=== PATIENT | male | born 1960 | race Caucasian/White ===

== ENCOUNTER → 2024-08-13 | Outpatient (CLI) | payer BC, OTHER ==
[2024-08-13 16:33] LABS: Basophils % (A) 0.8 %; Eosinophils # (A) 0.56 X 10*3/uL (0.04-0.35); Eosinophils % (A) 4.5 %; HCT 42.4 % (39.6-50.0); HGB 13.5 g/dL (13.0-17.0); Lymphocytes # (A) 2.57 X 10*3/uL (0.90-5.00); Lymphocytes % (A) 20.5 %; MCH 27.9 pg (27.0-32.0); MCHC 31.8 g/dL (32.0-37.0); MCV 87.6 FL (80.0-97.0); Mean Platelet Volume 10.2 FL (9.5-12.2); Monocytes # (A) 0.69 X 10*3/uL (0.20-1.00); Monocytes % (A) 5.5 %; NRBC Per 100 WBC 0 X 10*3/uL (0.00-0.01); Neutrophils # (A) 8.56 X 10*3/uL (1.80-7.70); Neutrophils % (A) 68.3 %; Platelet Count 400 X 10*3/uL (140-440); RBC 4.84 X 10*6/uL (4.40-5.60); RDW 14.3 % (11.5-14.5); WBC 12.53 X 10*3/uL (4.50-10.00)
[2024-08-13 16:43] LABS: Creatine Kinase 40 U/L (35-257); Erythrocyte Sedimentation Rate 57 mm/Hr (0-20)
[2024-08-13 16:44] LABS: Rheumatoid Factor, Qnt <15 IU/mL (0-15); Uric Acid 4.9 mg/dL (3.7-8.7)
[2024-08-14 11:42] LABS: HLA B27 NEGATIVE
== END | disposition home or self-care (01) ==
LOC: LABWHC1 09:53
PROVIDERS: ATTEND Orthopaedic Surgery
DX: M25.50 Pain in unspecified joint (principal)
CPT/HCPCS: 36415; 82550; 84550; 85025; 85652; 86038; 86140; 86431; 86812

== ENCOUNTER → 2025-01-14 | Outpatient (CLI) | payer BC, OTHER ==
[2025-01-14 19:07] LABS: Basophils # (A) 0.06 X 10*3/uL (0.00-0.10); Basophils % (A) 0.6 %; Eosinophils # (A) 0.04 X 10*3/uL (0.04-0.35); Eosinophils % (A) 0.4 %; HCT 41.8 % (39.6-50.0); HGB 13.7 g/dL (13.0-17.0); Lymphocytes # (A) 2.85 X 10*3/uL (0.90-5.00); Lymphocytes % (A) 26.1 %; MCH 28.8 pg (27.0-32.0); MCHC 32.8 g/dL (32.0-37.0); Monocytes # (A) 0.63 X 10*3/uL (0.20-1.00); Monocytes % (A) 5.8 %; NRBC Per 100 WBC 0 X 10*3/uL (0.00-0.01); Neutrophils # (A) 7.27 X 10*3/uL (1.80-7.70); Neutrophils % (A) 66.6 %; Platelet Count 279 X 10*3/uL (140-440); RBC 4.75 X 10*6/uL (4.40-5.60); RDW 16.5 % (11.5-14.5)
[2025-01-14 19:12] LABS: BUN/Creat Ratio 8.11 Ratio (12.00-20.00); Blood Urea Nitrogen 7.3 mg/dL (9.0-27.0); Calcium 9.7 mg/dL (8.7-10.3); Carbon Dioxide 26.7 mmol/L (21.6-31.8); Chloride 99 mmol/L (96-109); Glucose 101 mg/dL (70-110); INR 0.96 sec (0.93-1.11); Potassium 4.9 mmol/L (3.5-5.5); Sodium 136 mmol/L (135-145)
== END | disposition home or self-care (01) ==
LOC: LABPAT 14:54
PROVIDERS: ATTEND Orthopaedic Surgery
DX: Z01.812 Encounter for preprocedural laboratory examination (principal); M16.11 Unilateral primary osteoarthritis, right hip
CPT/HCPCS: 36415; 80048; 85025; 85610

== ENCOUNTER → 2025-01-29 | Outpatient (CLI) | payer BC, OTHER | END | disposition home or self-care (01) | LOC: LABPAT 11:18 | PROVIDERS: ATTEND Orthopaedic Surgery | DX: Z01.812 Encounter for preprocedural laboratory examination (principal); Z22.322 Carrier or suspected carrier of Methicillin resistant Staphylococcus aureus; M16.11 Unilateral primary osteoarthritis, right hip | CPT/HCPCS: 86850; 86900; 86901; 87070 ==

== ENCOUNTER 2025-02-09 05:51 | Day surgery (SDC) | payer BC, OTHER ==
[2025-02-04 11:48] VITALS: BMI 28.5
--- NOTE | 2025-02-08 08:17 | P.HPOR ---
History of Present Illness H&P Date: 02/08/25 Chief Complaint: Right hip pain Patient is a 64-year-old male who presents with progressive right hip pain for the past several years worsening over the past 2 months. He notes anterior thigh and groin pain with weightbearing activities and at night. He has tried medications along with activity modifications without much relief. He notes he has been limping. He notes the pain bothers him daily and is quite limiting. Review of Systems Per HPI Past Medical History Past Medical History: GERD/Reflux, Hypertension, Osteoarthritis (OA) History of Any Multi-Drug Resistant Organisms: None Reported Past Surgical History: Joint Replacement Additional Past Surgical History / Comment(s): LT SAMANTHA. COLONOSCOPY Past Anesthesia/Blood Transfusion Reactions: No Reported Reaction Smoking Status: Current every day smoker - Past Family History Mother Family Medical History: No Reported History Medications and Allergies Home Medications Medication Instructions Recorded Confirmed Type ALPRAZolam [Xanax] 0.5 mg PO BID PRN 02/04/25 02/04/25 History Acetaminophen-Codeine 300-30mg 1 - 2 tab PO Q4-6H PRN 02/04/25 02/04/25 History [Tylenol w/codeine #3] Cholecalciferol (Vitamin D3) 50 mcg PO DAILY 02/04/25 02/04/25 History [Vitamin D3 (50 Mcg = 2000 Iu)] Omeprazole [PriLOSEC] 20 mg PO AC-BRKFST 02/04/25 02/04/25 History amLODIPine [Norvasc] 10 mg PO DAILY 02/04/25 02/04/25 History lisinopriL 40 mg PO DAILY 02/04/25 02/04/25 History Allergies Allergy/AdvReac Type Severity Reaction Status Date / Time No Known Allergies Allergy Verified 02/03/25 11:32 Physical Examination - Hip right Gait: antalgic Tenderness with palpation: anterior Pain with motion: internal rotation and hip flexion ROM: flexion: 80 degrees ROM: internal rotation: 0 degrees ROM: external rotation: 50 degrees Crepitus with motion: Yes Strength: extension: 5/5 Strength: flexion: 5/5 Strength: abduction: 5/5 Tests: impingement tests: positive Results The patient is a well-developed well-nourished male approximately 5 foot 7, 193 pounds of mesomorphic habitus. HEENT exam is nonfocal, neck is supple. He has painful passive motion of the right hip. Straight leg raise is negative. His distal neurovascular exam appears intact in the right lower extremity. He has an antalgic gait pattern. - Diagnostic results Hip x-ray: image reviewed (X-rays of the right hip obtained the office show severe osteoarthrosis with [id number] changes and subchondral sclerosis.) Assessment and Plan Assessment: Right hip severe osteoarthrosis Plan: I talked to the patient at length regarding his condition along with treatment options. At this point he is quite symptomatic despite conservative measures. After a thorough discussion he opts to proceed with surgery. We will plan to proceed with a right total hip arthroplasty utilizing an anterior approach. Risks and benefits were discussed at length in layman's terms. We will institute DVT prophylaxis postoperatively.
[~2025-02-09 05:51] MED LIST: TRANEXAMIC 1,000 MG/100ML-NACL 1,000 MG in SALINE 1 100ML.BAG IVPB PRN
[2025-02-09] MEDS ORDERED: LIDOCAINE 1% (10MG/ML) FOR IV START INTRADERMA PRN (05:54)
[2025-02-09 06:53] LABS: Glucose,Whole Blood 98 mg/dL (70-110)
[2025-02-09] MEDS: MIDAZOLAM 2 MG/2 ML VIAL IV PRN (06:56)
[2025-02-09] MEDS ORDERED: HYDROmorphone 0.5 MG/0.5 ML SYRINGE IVP PRN ×2 (07:00→09:11)
[2025-02-09] MEDS ORDERED: fentaNYL (PF) 50 MCG/ML 2 ML AMP IVP PRN (07:00)
[2025-02-09] MEDS: DEXAMETHASONE SOD PHOSPHATE 4 MG/ML 1 ML VIAL IV ONE (07:05)
[2025-02-09] MEDS: ONDANSETRON 4 MG/2 ML VIAL IVP ONE (07:05)
[2025-02-09] MEDS: ACETAMINOPHEN TAB 500 MG TAB PO PRN (07:05)
[2025-02-09] MEDS: MELOXICAM 7.5 MG TAB PO PRN (07:06)
[2025-02-09] MEDS: LACTATED RINGERS 1,000 ML IV SCH (07:06)
[2025-02-09] MEDS: IV FLUID CONTINUATION 1,000 ML IV ONE (07:15)
[2025-02-09] MEDS ORDERED: ROPIVACAINE 5 MG/ML 30 ML VIAL ONE (07:30)
[2025-02-09] MEDS ORDERED: GLYCOPYRROLATE 0.2 MG/ML 2 ML VIAL ONE (07:30)
[2025-02-09] MEDS ORDERED: PROPOFOL 10 MG/ML 20 ML VIAL IV ONE (07:30)
[2025-02-09] MEDS ORDERED: KETAMINE HCL IN 0.9 % NACL 50 MG/5 ML SYRINGE ONE (07:30)
[2025-02-09] MEDS ORDERED: DEXAMETHASONE SOD PHOSPHATE 4 MG/ML 1 ML VIAL ONE (07:30)
[2025-02-09] MEDS ORDERED: TRANEXAMIC 1,000 MG/100ML-NACL PREMIX BAG ONE (07:30)
[2025-02-09] MEDS ORDERED: MIDAZOLAM 2 MG/2 ML VIAL ONE (07:30)
[2025-02-09] MEDS ORDERED: PHENYLEPHRINE-0.9% NACL SYG 1,000 MCG/10 ML SYRINGE ONE (07:30)
[2025-02-09] MEDS: ceFAZolin 2 GM in DEXTROSE 5% IN WATER 50 ML IVPB PRN (07:36)
[2025-02-09] MEDS: ceFAZolin 1,000 MG in SODIUM CHLORIDE 0.9% 1,000 ML IRRIGATION ONE (08:11)
[2025-02-09] MEDS ORDERED: NALOXONE 0.4 MG/ML 1 ML VIAL IV PRN (09:11)
[2025-02-09] MEDS ORDERED: MAGNESIUM HYDROXIDE 2,400 MG/30 ML CUP PO PRN (09:11)
--- NOTE | 2025-02-09 09:13 | FL ---
EXAMINATION TYPE: FL guidance operating room, XR Hip Limited RT DATE OF EXAM: 02/09/2025 9:03 AM COMPARISON: Pre Operative Images if available both CT/MRI or plain film CLINICAL INDICATION: Male, 64 years old with history of Rt Hip-Ant; TECHNIQUE: FL guidance operating room, XR Hip Limited RT, multiple fluoroscopic images provided for p rocedure. DAP: 1.2170 mGym2 Gycm2 uGym2 cGycm2 or equivalent. FINDINGS: Fluoroscopic images during internal fixation/arthroplasty demonstrate hardware in appropriate positio n. Hardware appears intact. No immediate complication identified. IMPRESSION: 1. No evidence for intraoperative complication. 2. Please see the operative/procedural note for further details. [facility], , 02/09/2025 9:11 AM
--- NOTE | 2025-02-09 09:25 | P.OP ---
Date of Procedure: 02/09/25 Preoperative Diagnosis: Right hip severe osteoarthrosis Postoperative Diagnosis: Same Procedure(s) Performed: Right total hip arthroplastypress-fitanterior approach Implants: DePuy Corail size 12-125 degree standard collared press-fit femoral stem, 36+1.5 cobalt chrome femoral head, 56 mm Shelley acetabular shell with neutral polyethylene liner. Anesthesia: spinal Surgeon: Emiliano Fatih Hydroelectric Plant Operator #1: Fuad Machado Estimated Blood Loss (ml): 150 Pathology: none sent Condition: stable Disposition: PACU Indications for Procedure: The patient is a 64-year-old male who presents with progressive right hip pain secondary to osteoarthrosis despite conservative measures. A discussion of the risks and benefits of operative intervention versus continued conservative measures was made with the patient. He opted to proceed with surgery. Operative risks include infection, neurovascular injury, development of blood clots, fracture, leg length discrepancy, possible instability, possible component loosening/failure and possible need for subsequent procedures was discussed. Informed consent was obtained. Operative Findings: As below Description of Procedure: The patient was brought to the operating room, and after induction of spinal anesthesia was placed supine on the Patsy table. Positioning was checked with fluoroscopy. The right hip was then prepped and draped in a normal fashion. A 12 cm incision was then made starting 2 fingerbreadths distal and 3 finger breaths posterior to the ASIS in line with the proximal femur. The skin was incised sharply. Subcutaneous tissues were divided sharply. Electrocautery was used for hemostasis. The fascia was split in line with skin incision. The interval between the sartorius and tensor fascia germain was then bluntly developed. The posterior fascia was opened with electrocautery. The lateral circumflex vessels were identified and cauterized prior to sectioning. A retractor was placed along the superior femoral neck as well as the anterior acetabular rim. A wide capsulotomy was performed. The neck cut was then made at a 45 angle to the shaft approximately 1 1/2 cm above the level of the lesser trochanter. The head was extracted. Attention was then paid towards preparing the acetabular. Anterior and posterior retractors were placed. The remaining capsular labral tissue sharply debrided clearly defining the acetabular margins. I began reaming with a 49 mm reamer taking care to initially medialize then reaming at 45 of abduction and 20 of anteversion. Sequential reaming is performed up to 55 mm. A trial 56 mm acetabular shell was inserted in the same orientation and was fully seated. There was good rim fit and stability. Positioning was checked with fluoroscopy. The final 56 mm acetabular shell was inserted again at 45 of abduction and 20 of anteversion. This was fully seated. There was good rim fit and stability. Again fluoroscopy was used to check the adequacy of placement. A neutral polyethylene liner was gently impacted. Care was taken to avoid any soft tissue interposition. Pulsatile lavage was utilized. Attention was then paid towards preparing the proximal femur. The central region was cleared of soft tissue. A canal finder was used to find the femoral canal. Sequential broaching was performed up to size 12 taking care to lateralize proximally. A calcar mill was used to fashion the medial calcar. There was good rotational stability. A 125 degree standard neck along with a 36 mm +1.5 head was placed. The hip was gently reduced. Fluoroscopy was used to check the adequacy of positioning along with leg lengths. I felt both were good. The hip was gently dislocated. The trial components were removed. The final size 12-125 degree collared standard press-fit femoral stem was inserted parallel to the posterior cortex. This was fully seated and there was good rotational stability. A 36 mm +1.5 cobalt chrome femoral head was placed. This was gently impacted. The hip was then gently reduced. Final fluoroscopic view showed adequate placement implant along with religion of leg length. Stability was checked with 80 of external rotation and 60 of extension of the right hip. The wound was irrigated with sterile lavage. The fascia was closed with running 0 Vicryl suture. There was minimal drainage therefore a deep drain was not placed. The second dose of IV TXA was given. The subcutaneous tissues were reapproximated interrupted 2-0 Vicryl sutures. The skin was reapproximated with 3-0 subcuticular strata fix suture. Skin tape and adhesive was applied. A sterile dressing was applied. The patient was then awoken from sedation and transferred to recovery room in good condition. Blood loss was estimated at 150 mL. No complications were incurred. Sponge and needle counts were correct at the end of the case. Fuad CHOWDHURY assisted during the major components is case to include exposure, bone resection, implantation, and closure.
--- NOTE | 2025-02-09 10:08 | XR ---
EXAMINATION TYPE: XR Hip Limited RT DATE OF EXAM: 02/09/2025 9:29 AM COMPARISON: None CLINICAL INDICATION: Male, 64 years old with history of Status post hip surgery, assess surgical lang mccracken; PHH, pain TECHNIQUE: XR Hip Limited RT; Frontal view FINDINGS: Post arthroplasty changes, hardware is intact, alignment is appropriate. No evidence of fra cture. Postoperative changes of the soft tissues with subcutaneous gas. No evidence of any acute osse ous pathology or joint dislocation. IMPRESSION: Hip arthroplasty with hardware intact and in appropriate alignment. No acute fracture. [facility], , 02/09/2025 10:05 AM
--- NOTE | 2025-02-09 12:20 | P.HPIM ---
History of Present Illness 64-year-old male admitted for right hip arthroplasty. Patient's postsurgery clinically doing well. Does not have any significant pain at this time denied any fever chills nausea vomiting abdominal pain dysuria. Labs are pending at this time patient has history of hypertension blood pressure is fairly stable at this time REVIEW OF SYSTEMS: All other systems are negative except those mentioned in the HPI PHYSICAL EXAMINATION: GENERAL: The patient is alert and oriented x3, not in any acute distress. Well developed, well nourished. HEENT: Pupils are round and equally reacting to light. EOMI. No scleral icterus. No conjunctival pallor. Normocephalic, atraumatic. No pharyngeal erythema. No thyromegaly. CARDIOVASCULAR: S1 and S2 present. No murmurs, rubs, or gallops. PULMONARY: Chest is clear to auscultation, no wheezing or crackles. ABDOMEN: Soft, nontender, nondistended, normoactive bowel sounds. No palpable organomegaly. MUSCULOSKELETAL: No joint swelling or deformity. EXTREMITIES: No cyanosis, clubbing, or pedal edema. NEUROLOGICAL: Gross neurological examination did not reveal any focal deficits. SKIN: No rashes. Assessment and plan -Right hip arthroplasty pain management DVT prophylaxis as per primary service - Hypertension hold off amlodipine and lisinopril to prevent perioperative hypotension -Gastroesophageal reflux disease - Primary osteoarthritis for which patient had a hip replacement at this time DVT prophylaxis: As per primary service Past Medical History Past Medical History: GERD/Reflux, Hypertension, Osteoarthritis (OA) History of Any Multi-Drug Resistant Organisms: None Reported Past Surgical History: Joint Replacement Additional Past Surgical History / Comment(s): LT SAMANTHA. COLONOSCOPY Past Anesthesia/Blood Transfusion Reactions: No Reported Reaction Past Psychological History: Anxiety Smoking Status: Current every day smoker Past Alcohol Use History: None Reported Additional Past Alcohol Use History / Comment(s): SMOKES 1 PPD SINCE AGE 26 Past Drug Use History: Marijuana Additional Drug Use History / Comment(s): USES MARIJUANA DAILY-INSTRUCTED TO REFRAIN FROM USE FOR AT LEAST 24 HOURS PRIOR TO PROCEDURE - Past Family History Mother Family Medical History: No Reported History Medications and Allergies Home Medications Medication Instructions Recorded Confirmed Type ALPRAZolam [Xanax] 0.5 mg PO BID PRN 02/04/25 02/04/25 History Acetaminophen-Codeine 300-30mg 1 - 2 tab PO Q4-6H PRN 02/04/25 02/04/25 History [Tylenol w/codeine #3] Cholecalciferol (Vitamin D3) 50 mcg PO DAILY 02/04/25 02/04/25 History [Vitamin D3 (50 Mcg = 2000 Iu)] Omeprazole [PriLOSEC] 20 mg PO AC-BRKFST 02/04/25 02/04/25 History amLODIPine [Norvasc] 10 mg PO DAILY 02/04/25 02/04/25 History lisinopriL 40 mg PO DAILY 02/04/25 02/04/25 History Allergies Allergy/AdvReac Type Severity Reaction Status Date / Time No Known Allergies Allergy Verified 02/09/25 06:26 Physical Exam Vitals: Vital Signs Temp Pulse Resp BP Pulse Ox 02/09/25 11:53 95 02/09/25 10:22 60 16 110/76 95 02/09/25 10:07 62 16 102/61 96 02/09/25 09:52 61 16 107/66 95 02/09/25 09:37 65 16 85/55 96 02/09/25 09:18 97 F L 57 L 16 111/64 100 02/09/25 07:03 64 20 103/59 95 02/09/25 06:43 97.7 F 69 20 122/69 96 Intake and Output 02/08/25 02/09/25 02/09/25 22:59 06:59 14:59 Intake Total 751 Output Total 150 Balance 601 Intake: IV 751 Output: Estimated Blood Loss 150 Other: Weight 80.7 kg 80.7 kg Thrombosis Risk Factor Assmnt - Choose All That Apply Any of the Below Risk Factors Present?: Yes Each Factor Represents 1 point: Obesity (BMI >25) Each Risk Factor Represents 2 Points: Age 61-74 years Each Risk Factor Represents 5 Points: Elective major lower extremity arthoplasty Thrombosis Risk Factor Assessment Total Risk Factor Score: 8 Thrombosis Risk Factor Assessment Level: High Risk
[2025-02-09] MEDS: HYDROcodone/APAP 7.5-325MG 1 EACH TAB PO PRN (12:40)
--- NOTE | 2025-02-09 14:42 | P.ANPRN ---
Procedure Note - Anesthesia - Nerve Block Performed Right Jordan Single Time Out Performed: Yes Date of Procedure: 02/09/25 Procedure Start Time: 06:56 Procedure Stop Time: 07:00 Location of Patient: PreOp Indication: Acute Post-Operative Pain, Requested by Surgeon Sedation Type: Sedate with meaningful contact maintained Preparation: Sterile Prep Position: Supine Needle Types: Pajunk Needle Gauge: 21 Ultrasound used to visualize needle placement: Yes Ultrasound used to observe medication spread: Yes Blood Aspirated: No Pain Paresthesia on Injection Noted: No Resistance on Injection: Normal Image Stored and Saved: Yes Events: Uneventful and Well Tolerated (ropi 0.5% 20 cc was dexamethasone 4 mg)
[2025-02-09] MEDS: HYDROmorphone 2 MG/ML 1 ML SYRINGE IVP PRN (14:47)
[2025-02-09] MEDS: ceFAZolin 2 GM in DEXTROSE 5% IN WATER 50 ML IVPB SCH (16:07)
[2025-02-09 19:33] VITALS: RESP 16
[2025-02-09] MEDS: HYDROcodone/APAP 5-325MG 1 EACH TAB PO PRN (20:30)
[2025-02-09] MEDS: SENNOSIDES-DOCUSATE SODIUM 1 EACH TAB PO SCH (20:30)
[2025-02-10] MEDS: PANTOPRAZOLE 40 MG TABLET PO SCH (06:15)
[2025-02-10 07:17] VITALS: BP 154/81; PULSE 81; TEMP 97.5
[2025-02-10] MEDS: hydrOXYzine pamoate 25 MG CAP PO PRN (07:59)
[2025-02-10] MEDS: RIVAROXABAN 10 MG TAB PO SCH (07:59)
[2025-02-10 08:36] LABS: Basophils # (A) 0.01 X 10*3/uL (0.00-0.10); Basophils % (A) 0.1 %; Eosinophils # (A) 0 X 10*3/uL (0.04-0.35); Eosinophils % (A) 0 %; HCT 37.9 % (39.6-50.0); HGB 12.4 g/dL (13.0-17.0); Lymphocytes # (A) 1.21 X 10*3/uL (0.90-5.00); Lymphocytes % (A) 8.1 %; MCH 29.1 pg (27.0-32.0); MCHC 32.7 g/dL (32.0-37.0); Mean Platelet Volume 11.3 FL (9.5-12.2); Monocytes # (A) 1.14 X 10*3/uL (0.20-1.00); Monocytes % (A) 7.6 %; NRBC Per 100 WBC 0 X 10*3/uL (0.00-0.01); Neutrophils # (A) 12.49 X 10*3/uL (1.80-7.70); Neutrophils % (A) 83.6 %; Platelet Count 234 X 10*3/uL (140-440); RBC 4.26 X 10*6/uL (4.40-5.60); RDW 16.1 % (11.5-14.5); WBC 14.94 X 10*3/uL (4.50-10.00)
[2025-02-10] MEDS: lisinopriL 20 MG TAB PO SCH (10:16)
[2025-02-10] MEDS: amLODIPine 10 MG TAB PO SCH (10:16)
--- NOTE | 2025-02-10 11:41 | P.DS ---
Providers Date of admission: 02/09/2025 Expected date of discharge: 02/10/25 Attending physician: Emiliano Faith Consults: 02/09/25 09:11 Consult Physician Routine Consulting Provider: Samm Jensen Consult Reason/Comments: Medical management status post direct anterior right total hip arthroplasty Do you want consulting provider notified?: Yes Primary care physician: John Mcgill [facility] Course: Date of admission: 02/09/2025 Date of discharge: 02/10/2025 Admission diagnosis: Right hip osteoarthritis Discharge diagnosis: Same Attending physician: Dr. Faith Surgical procedures: Direct anterior right total hip arthroplasty Brief history: Patient is a 64-year-old male with a history of progressive primary right hip osteoarthritis. At this point patient has failed conservative treatment measures and has opted to proceed with a elective direct anterior right total hip arthroplasty. Hospital course: Details of patient's surgery can be found in operative report. Patient tolerated the procedure well and was subsequently transported to orthopedic floor. Patient's orthopeidc and medical care was provided daily. Patient had daily laboratory tests performed for evaluation of overall blood counts. Patient had daily physical therapy to include strengthening range of motion as well as education with walker ambulation. Patient was treated with Xarelto for their postoperative DVT prophylaxis during their inpatient stay. Patient was noted to have a relatively uneventful postoperative course. Patient reported satisfactory pain control with oral pain medications by postoperative day 1. Patient showed satisfactory progress with physical therapy. Patient moved steadily through the program and had no difficulty meeting the goals by postoperative day 1. Given patient's otherwise satisfactory course and having met physical therapy goals, plan is to discharge patient home with health services on postoperative day 1. Discharge condition/disposition: Patient will be discharged home with health services in stable condition. Discharge medications: Instructions are given on resumption of patient's normal daily medications per primary care recommendation, in addition patient will be prescribed [place]; senna; Eliquis 2.5 mg twice daily x 2 weeks. Discharge instructions: 1. Wound care and infection precautions, keep incision dry and covered while showering, no lotions, creams, moisturizers. No soaking, tubs, pools, hottubs. Do not scrub over the incision. 2. Weight-bear as tolerated with walker / cane until follow-up. 3. Ice and elevate when necessary. Do not exceed 20 minutes per hour with ice pack. 4. Utilize compression sleeve until seen at first follow up appointment. 5. Visiting nursing care. 6. Home physical therapy. 7. Pain meds and anticoagulants per prescription. 8. Pain medication has potential to cause constipation. Increase oral fluid and fiber intake. Contact primary care provider if you have not had a bowel movement within 48 hours after discharge 9. No anti-inflammatory medication until discussed at first post operative visit, this including Motrin, Aleve, Mobic, Diclofenac. 10. Follow up in office at 2 weeks postop with José Miguel Mireles PA-C / Fuad Machado PA-C 11. Follow up with your primary care doctor 7-10 days after discharge. 12. Contact [facility] with any questions, . Assessment: Right hip osteoarthritis Procedures: Direct anterior right total hip arthroplasty Patient Condition at Discharge: Good Plan - Discharge Summary Discharge Rx Participant: Yes New Discharge Prescriptions: New Apixaban [Eliquis] 2.5 mg PO BID #60 tab HYDROcodone/APAP 7.5-325MG [[place] 7.5-325] 1 - 2 tab PO Q6HR PRN #32 tab PRN Reason: Pain Sennosides/Docusate Sodium [Senna Plus 8.6-50 mg Softgel] 1 each PO DAILY #20 capsule No Action amLODIPine [Norvasc] 10 mg PO DAILY Acetaminophen-Codeine 300-30mg [Tylenol w/codeine #3] 1 - 2 tab PO Q4-6H PRN PRN Reason: Pain lisinopriL 40 mg PO DAILY Omeprazole [PriLOSEC] 20 mg PO AC-BRKFST ALPRAZolam [Xanax] 0.5 mg PO BID PRN PRN Reason: Anxiety Cholecalciferol (Vitamin D3) [Vitamin D3 (50 Mcg = 2000 Iu)] 50 mcg PO DAILY Discharge Medication List ALPRAZolam [Xanax] 0.5 mg PO BID PRN 02/04/25 [History] Acetaminophen-Codeine 300-30mg [Tylenol w/codeine #3] 1 - 2 tab PO Q4-6H PRN 02/04/25 [History] Cholecalciferol (Vitamin D3) [Vitamin D3 (50 Mcg = 2000 Iu)] 50 mcg PO DAILY 02/04/25 [History] Omeprazole [PriLOSEC] 20 mg PO AC-BRKFST 02/04/25 [History] amLODIPine [Norvasc] 10 mg PO DAILY 02/04/25 [History] lisinopriL 40 mg PO DAILY 02/04/25 [History] Apixaban [Eliquis] 2.5 mg PO BID #60 tab 02/10/25 [Rx] HYDROcodone/APAP 7.5-325MG [Mystic 7.5-325] 1 - 2 tab PO Q6HR PRN #32 tab 02/10/25 [Rx] Sennosides/Docusate Sodium [Senna Plus 8.6-50 mg Softgel] 1 each PO DAILY #20 capsule 02/10/25 [Rx] Follow up Appointment(s)/Referral(s): Fuad Machado, PAC [PHYSICIAN ANIMAL DAMAGE CONTROL AGENT] - 2 Weeks [facility]ipment [NON-STAFF] - As Needed (walker) Patient Instructions/Handouts: Anterior Hip Replacement (GEN) Activity/Diet/Wound Care/Special Instructions: Orthopedic Discharge Instructions: 1. Wound care and infection precautions, keep incision dry and covered while showering, no lotions, creams, moisturizers. No soaking, pools, hot tubs. Do not scrub over incision. 2. Weight-bear as tolerated with walker / cane until follow-up. 3. Ice and elevate when necessary. Do not exceed 20 minutes per hour with ice pack. 4. Utilize compression sleeve until seen at first follow up appointment. 5. Pain meds and anticoagulants per prescription. 6. Pain medication has potential to cause constipation. Increase oral fluid and fiber intake. Contact primary care provider if you have not had a bowel movement within 48 hours after discharge. 7. No anti-inflammatory medication until discussed at first post operative visit, this including Motrin, Aleve, Mobic, Diclofenac. 8. Follow up in office at 2 weeks postop with José Miguel Mireles PA-C / Fuad Machado PA-C 9. Follow up with your primary care doctor 7-10 days after discharge. 10. Contact [facility] with any questions, . Keep incision clean, dry, intact. While showering, cover fusion tape with Saran wrap. Keep fusion tape on until follow-up appointment in office in 2 weeks. Discharge Disposition: HOME WITH HOME HEALTH SERVICES
--- NOTE | 2025-02-10 12:32 | P.PN ---
Subjective Progress Note Date: 02/10/25 Principal diagnosis: Right hip osteoarthritis Patient was seen at bedside this morning sitting up in chair with dressing present over hip. Patient says he did do well with therapy this morning walked out of the hallway and up and down steps. He says he has been urinating since surgery yesterday without issue. Patient states no bowel movement yet, however, patient mentions he has been passing gas. Patient says he does need a walker for home. Patient denies any other issues at this time. Objective - Vital Signs Vital signs: Vital Signs Temp 97.5 F L 02/10/25 07:16 Pulse 81 02/10/25 07:16 Resp 16 02/10/25 08:28 BP 154/81 02/10/25 07:16 Pulse Ox 96 02/10/25 07:16 FiO2 Intake & Output 02/09/25 02/10/25 02/10/25 18:59 06:59 18:59 Intake Total 1051 Output Total 150 850 850 Balance 901 -850 -850 Weight 80.7 kg Intake: IV 751 Oral 300 Output: Urine 850 850 Estimated Blood Loss 150 Other: Voiding Method Toilet # Voids 2 1 1 - Exam Right hip: Incision is clean, dry, and intact. The exofin fusion tape is in good condition. There is minimal soft tissue swelling and ecchymosis surrounding the medial and lateral aspects of the incision. Calf is soft, no tenderness with palpation. Plantar flexion, dorsiflexion, EHL, FHL are intact. Sensory exam to light touch throughout the extremity is intact, dorsal pedis pulses 2+. - Labs CBC & Chem 7: 02/10/25 02:23 Labs: Abnormal Lab Results - Last 24 Hours (Table) 02/10/25 Range/Units 02:23 WBC 14.94 H (4.50-10.00) X 10*3/uL RBC 4.26 L (4.40-5.60) X 10*6/uL Hgb 12.4 L (13.0-17.0) g/dL Hct 37.9 L (39.6-50.0) % RDW 16.1 H (11.5-14.5) % Immature Gran # 0.09 H (0.00-0.04) X 10*3/uL Neutrophils # 12.49 H (1.80-7.70) X 10*3/uL Monocytes # 1.14 H (0.20-1.00) X 10*3/uL Eosinophils # 0 L (0.04-0.35) X 10*3/uL Assessment and Plan Assessment: 1. Right hip osteoarthritis -Postop day 1 status post direct anterior right total hip arthroplasty Plan: 1. Right hip osteoarthritis -direct anterior right total hip arthroplasty performed yesterday, 02/09/2025. Patient stable at bedside this morning with dressing present over the right hip. Weightbearing as tolerated with walker. Discharge home today with health services. 2. Appreciate medical management 3. Pain management -[place] 4. DVT prophylaxis -Xarelto in hospital. Going home with Eliquis 2.5 mg twice daily x 2 weeks 5. GI prophylaxis -senna 6. PT/OT -weightbearing as tolerated with walker 7. Encourage incentive spirometer use 8. Discharge planning -home today with health services Time with Patient: Less than 30
--- NOTE | 2025-02-10 12:33 | P.PN ---
Subjective Progress Note Date: 02/10/25 64-year-old male admitted for right hip arthroplasty. Patient's postsurgery clinically doing well. Does not have any significant pain at this time denied any fever chills nausea vomiting abdominal pain dysuria. Labs are pending at this time patient has history of hypertension blood pressure is fairly stable at this time 02/10/2025 Patient is evaluated today in follow up on the medical floor. Postoperative day #1 right total hip arthroplasty. Doing well postoperatively. He is requesting oral norco prior to DC as his pain is creeping back up. Patients blood pressure up to to 185/101 and 154/81 and patients losartan and amlodipne have been resumed for this morning and discussed with patient to resume all same home medications on discharge. White blood cell count 14.94. Review of Systems Constitutional: Denied any fatigue denied any fever. Cardio vascular: denied any chest pain, palpitations Gastrointestinal: denied any nausea, vomiting, diarrhea Pulmonary: Denied any shortness of breath cough Neurologic denied any new focal deficits All inpatient medications were reviewed and appropriate changes in these medications as dictated in the interval history and assessment and plan. PHYSICAL EXAMINATION: GENERAL: The patient is alert and oriented x3, not in any acute distress. Well developed, well nourished. HEENT: Pupils are round and equally reacting to light. EOMI. No scleral icterus. No conjunctival pallor. Normocephalic, atraumatic. No pharyngeal erythema. No thyromegaly. CARDIOVASCULAR: S1 and S2 present. No murmurs, rubs, or gallops. PULMONARY: Chest is clear to auscultation, no wheezing or crackles. ABDOMEN: Soft, nontender, nondistended, normoactive bowel sounds. No palpable organomegaly. MUSCULOSKELETAL: No joint swelling or deformity. EXTREMITIES: No cyanosis, clubbing, or pedal edema. NEUROLOGICAL: Gross neurological examination did not reveal any focal deficits. SKIN: No rashes. Assessment and plan -Right hip arthroplasty pain management DVT prophylaxis as per primary service -Hypertension resumed on home medications -Gastroesophageal reflux disease -Primary osteoarthritis for which patient had a hip replacement at this time DVT prophylaxis: As per primary service Full Code Plan Patient is stable medically for discharge home. He has not had a BM however his abdomen is soft nontender with normal active bowel sounds. He is passing gas and urinating without difficulty. Did discuss using a bowel regimen while on narcotics for pain management and patient is agreeable to this plan. He has not resumed an asthma pressure medication this morning as he was hypertensive and discussed that he will resume all same home medications on discharge. Possibly in follow-up with his PCP Dr. John Pace in 1 to 2 days. Follow-up with orthopedics as recommended. Patient is been discharged on Eliquis with 2.5 mg twice daily for the next 30 days for DVT prophylaxis. The impression and plan of care has been dictated by Marcella Chapman, Nurse Practitioner as directed. Dr. Alexander MD I have performed a history and physical examination and medical decision making of this patient, discussed the same with the dictator, and agree with the dictators assessment and plan as written, documented as a scribe. Based on total visit time, I have performed more than 50% of this visit. Objective - Vital Signs Vital signs: Vital Signs Temp 97.5 F L 02/10/25 07:16 Pulse 81 02/10/25 07:16 Resp 16 02/10/25 08:28 BP 154/81 02/10/25 07:16 Pulse Ox 96 02/10/25 07:16 FiO2 Intake & Output 02/09/25 02/10/25 02/10/25 18:59 06:59 18:59 Intake Total 1051 Output Total 150 850 850 Balance 901 -850 -850 Weight 80.7 kg Intake: IV 751 Oral 300 Output: Urine 850 850 Estimated Blood Loss 150 Other: Voiding Method Toilet # Voids 2 1 1 - Labs CBC & Chem 7: 02/10/25 02:23 Labs: Abnormal Lab Results - Last 24 Hours (Table) 02/10/25 Range/Units 02:23 WBC 14.94 H (4.50-10.00) X 10*3/uL RBC 4.26 L (4.40-5.60) X 10*6/uL Hgb 12.4 L (13.0-17.0) g/dL Hct 37.9 L (39.6-50.0) % RDW 16.1 H (11.5-14.5) % Immature Gran # 0.09 H (0.00-0.04) X 10*3/uL Neutrophils # 12.49 H (1.80-7.70) X 10*3/uL Monocytes # 1.14 H (0.20-1.00) X 10*3/uL Eosinophils # 0 L (0.04-0.35) X 10*3/uL Assessment and Plan Time with Patient: Less than 30
== END 2025-02-10 14:02 | disposition home health service (06) ==
LOC: OR 05:51 → 4SSUR 09:09 → OR 02-10 14:02
PROVIDERS: ATTEND Orthopaedic Surgery
DX: M16.11 Unilateral primary osteoarthritis, right hip (principal); G89.18 Other acute postprocedural pain; I10 Essential (primary) hypertension; K21.9 Gastro-esophageal reflux disease without esophagitis; F17.210 Nicotine dependence, cigarettes, uncomplicated; Z79.01 Long term (current) use of anticoagulants; Z79.899 Other long term (current) drug therapy
CPT/HCPCS: 94760; 97162; 97166; 64473; 85025; 73501; 27130; C1776; J2250; J1171 ×2; J1100; J0690 ×3; J2405